=== PATIENT | male | born 1955 | race Caucasian/White ===

== ENCOUNTER 2022-01-24 02:32 | Inpatient (IN) | payer MEDICARE ==
--- NOTE | 2022-01-24 03:43 | XR ---
EXAMINATION TYPE: XR chest 2V DATE OF EXAM: 01/24/2022 COMPARISON: NONE HISTORY: Short of breath TECHNIQUE: 2 views FINDINGS: There is patchy infiltrate in both lungs with some coalescent density right midlung field t hat measures 6 cm. There are no hilar masses. Heart size is normal. No heart failure seen. No definit e pleural effusion. There is 1 cm calcified granuloma right lower lobe. IMPRESSION: Bilateral patchy pulmonary infiltrates. No heart failure.
[2022-01-24 03:47] LABS: Basophils % (A) 0 %; Eosinophils # (A) 0.1 k/uL (0-0.7); Eosinophils % (A) 1 %; HCT 42.4 % (39.0-53.0); Lymphocytes # (A) 1.1 k/uL (1.0-4.8); Lymphocytes % (A) 10 %; MCH 30.7 pg (25.0-35.0); MCHC 33.1 g/dL (31.0-37.0); MCV 92.6 fL (80.0-100.0); Mean Platelet Volume 7.4; Monocytes # (A) 0.7 k/uL (0-1.0); Monocytes % (A) 6 %; Neutrophils % (A) 82 %; Platelet Count 233 k/uL (150-450); RBC 4.57 m/uL (4.30-5.90); RDW 13.7 % (11.5-15.5)
[2022-01-24 04:00] LABS: INR 0.9 (<1.2); Partial Thromboplastin Time 22.5 sec (22.0-30.0); Prothrombin Time 10.3 sec (9.0-12.0)
[2022-01-24 04:01] LABS: ALT 66 U/L (4-49); AST 73 U/L (17-59); African American GFR (CKD) >90 (>60 ml/min/1.73 sqM); Albumin 3.6 g/dL (3.5-5.0); Alkaline Phosphatase 81 U/L (38-126); Anion Gap 9 mmol/L; Blood Urea Nitrogen 16 mg/dL (9-20); Calcium 8.8 mg/dL (8.4-10.2); Carbon Dioxide 22 mmol/L (22-30); Chloride 108 mmol/L (98-107); Glucose 194 mg/dL (74-99); Non-African American GFR(CKD) >90 (>60 ml/min/1.73 sqM); Potassium 3.6 mmol/L (3.5-5.1); Sodium 139 mmol/L (137-145); Total Bilirubin 0.6 mg/dL (0.2-1.3); Total Protein 6.6 g/dL (6.3-8.2)
--- NOTE | 2022-01-24 05:52 | CT ---
EXAMINATION TYPE: CT angio chest DATE OF EXAM: 01/24/2022 COMPARISON: None HISTORY: elevated d-dimer CT DLP: 584.6 mGycm Automated exposure control for dose reduction was used. CONTRAST: Performed with IV Contrast, patient injected with 70 mL of Isovue 370. Images obtained from the thoracic inlet to the diaphragm with IV contrast. There are 3-D post process ed images. There are some enlarged paratracheal and anterior mediastinal lymph nodes that measure up to 2.5 cm. There is a stellate mass at the lateral aspect of the right pulmonary hilum measuring 5 cm in diamete r. There are enlarged bilateral bronchial lymph nodes up to 2 cm. Heart size is normal. There is no pericardial effusion. There is normal contrast opacification of the pulmonary arteries. There are no filling defects. There is 1 cm calcified granuloma in the right middle lobe. There are scattered bilateral noncalcified pul monary nodules in the lower lung nowak that measure up to 1 cm. There is small right pleural effusio n. There are calcified granulomata in the spleen. The thoracic spine is intact. There is no compression fracture. Sternum is intact. IMPRESSION: Large stellate mass in the right upper lobe at the right pulmonary hilum consistent with primary pily gnancy. Extensive mediastinal and bronchial adenopathy. Multiple scattered low lobe pulmonary nodules could relate to metastatic disease. No evidence of pulmonary embolism.
[2022-01-24] MEDS ORDERED: NITROGLYCERIN SL TABS 0.4 MG TAB SUBLINGUAL PRN (07:48)
[2022-01-24] MEDS ORDERED: HEPARIN SODIUM,PORCINE/PF 5,000 UNIT/0.5 ML SYRINGE SQ SCH (08:00)
--- NOTE | 2022-01-24 09:24 | ED ---
SOB HPI - General Chief Complaint: Shortness of Breath Stated Complaint: LUTHER Time Seen by Provider: 01/24/22 02:51 Source: patient, EMS Mode of arrival: EMS - History of Present Illness Initial Comments: This patient is 66-year-old man who presents to be evaluated for shortness of breath that is gotten worse over the course of tonight. He noticed that proximally 2-3 hours ago. He states that he was trying to rest at the time. He did not have any associated fever or chills. No cough. No chest pain or diaphoresis. MD Complaint: shortness of breath Onset/Timin -: hour(s) Severity scale (1-10): 0 Consistency: constant Improves With: nothing Worsens With: nothing Associated Symptoms: denies other symptoms Treatments Prior to Arrival: none - Related Data Home Medications Medication Instructions Recorded Confirmed ALPRAZolam [Xanax] 0.25 mg PO DAILY PRN 01/24/22 01/24/22 Atorvastatin [Lipitor] 10 mg PO DAILY 01/24/22 01/24/22 Carvedilol [Coreg] 12.5 mg PO BID 01/24/22 01/24/22 Clopidogrel [Plavix] 75 mg PO DAILY 01/24/22 01/24/22 Losartan/Hydrochlorothiazide 1 tab PO DAILY 01/24/22 01/24/22 [Losartan-Hctz 100-25 mg Tab] Multivitamins, Thera [Multivitamin 1 tab PO DAILY 01/24/22 01/24/22 (formulary)] Niacin 500 mg PO DAILY 01/24/22 01/24/22 Venlafaxine HCl ER [Effexor Xr] 37.5 mg PO DAILY 01/24/22 01/24/22 amLODIPine [Norvasc] 10 mg PO HS 01/24/22 01/24/22 metFORMIN HCL [Glucophage] 1,000 mg PO BID 01/24/22 01/24/22 Allergies Allergy/AdvReac Type Severity Reaction Status Date / Time No Known Allergies Allergy Verified 01/24/22 08:15 Review of Systems ROS Statement: Those systems with pertinent positive or pertinent negative responses have been documented in the HPI. ROS Other: All systems not noted in ROS Statement are negative. Constitutional: Denies: fever, chills Respiratory: Reports: dyspnea. Denies: cough, wheezes, hemoptysis Cardiovascular: Denies: chest pain, palpitations, orthopnea, edema, syncope Gastrointestinal: Denies: abdominal pain, vomiting, diarrhea Genitourinary: Denies: dysuria, hematuria Musculoskeletal: Denies: back pain Skin: Denies: rash Neurological: Denies: headache, weakness Past Medical History Past Medical History: Coronary Artery Disease (CAD), CVA/TIA, Diabetes Mellitus, Hyperlipidemia, Hypertension, Myocardial Infarction (MT) Additional Past Medical History / Comment(s): "irregular heartbeat", hernia History of Any Multi-Drug Resistant Organisms: None Reported Past Surgical History: Appendectomy, Cholecystectomy, Heart Catheterization With Stent Past Psychological History: No Psychological Hx Reported Smoking Status: Current every day smoker Past Alcohol Use History: None Reported Past Drug Use History: None Reported General Exam General appearance: alert, in no apparent distress Head exam: Present: atraumatic, normocephalic Eye exam: Present: normal appearance. Absent: scleral icterus, conjunctival injection Neck exam: Present: normal inspection Respiratory exam: Present: wheezes (There is a trace wheeze bilaterally). Absent: respiratory distress, rales, rhonchi, stridor Cardiovascular Exam: Present: regular rate, normal rhythm, normal heart sounds. Absent: systolic murmur, diastolic murmur, rubs, gallop GI/Abdominal exam: Present: soft. Absent: distended, tenderness, guarding, rebound, rigid, mass Extremities exam: Present: normal inspection, normal capillary refill. Absent: pedal edema, calf tenderness Back exam: Present: normal inspection. Absent: CVA tenderness (R), CVA tenderness (L) Neurological exam: Present: alert Skin exam: Present: warm, dry, intact, normal color. Absent: rash Course Vital Signs 01/24/22 01/24/22 01/24/22 02:35 02:57 04:42 Temperature 98.1 F Pulse Rate 87 74 Respiratory 16 24 16 Rate Blood Pressure 127/78 O2 Sat by Pulse 95 98 Oximetry 01/24/22 01/24/22 06:42 09:09 Temperature Pulse Rate 74 70 Respiratory 22 18 Rate Blood Pressure 156/83 155/92 O2 Sat by Pulse 98 96 Oximetry Medical Decision Making - Lab Data Result diagrams: 01/24/22 03:32 01/24/22 03:32 Lab Results 01/24/22 01/24/22 01/24/22 Range/Units 03:32 03:32 03:32 WBC 11.0 H (3.8-10.6) k/uL RBC 4.57 (4.30-5.90) m/uL Hgb 14.0 (13.0-17.5) gm/dL Hct 42.4 (39.0-53.0) % MCV 92.6 (80.0-100.0) fL MCH 30.7 (25.0-35.0) pg MCHC 33.1 (31.0-37.0) g/dL RDW 13.7 (11.5-15.5) % Plt Count 233 (150-450) k/uL MPV 7.4 Neutrophils % 82 % Lymphocytes % 10 % Monocytes % 6 % Eosinophils % 1 % Basophils % 0 % Neutrophils # 9.0 H (1.3-7.7) k/uL Lymphocytes # 1.1 (1.0-4.8) k/uL Monocytes # 0.7 (0-1.0) k/uL Eosinophils # 0.1 (0-0.7) k/uL Basophils # 0.0 (0-0.2) k/uL PT 10.3 (9.0-12.0) sec INR 0.9 (<1.2) APTT 22.5 (22.0-30.0) sec D-Dimer 1.29 H (<0.60) mg/L FEU Sodium 139 (137-145) mmol/L Potassium 3.6 (3.5-5.1) mmol/L Chloride 108 H (98-107) mmol/L Carbon Dioxide 22 (22-30) mmol/L Anion Gap 9 mmol/L BUN 16 (9-20) mg/dL Creatinine 0.76 (0.66-1.25) mg/dL Est GFR (CKD-EPI)AfAm >90 (>60 ml/min/1.73 sqM) Est GFR (CKD-EPI)NonAf >90 (>60 ml/min/1.73 sqM) Glucose 194 H (74-99) mg/dL Plasma Lactic Acid Chen[place] (0.7-2.0) mmol/L Calcium 8.8 (8.4-10.2) mg/dL Total Bilirubin 0.6 (0.2-1.3) mg/dL AST 73 H (17-59) U/L ALT 66 H (4-49) U/L Alkaline Phosphatase 81 (38-126) U/L Troponin I (0.000-0.034) ng/mL NT-Pro-B Natriuret Pep pg/mL Total Protein 6.6 (6.3-8.2) g/dL Albumin 3.6 (3.5-5.0) g/dL Coronavirus (PCR) (Not Detectd) 01/24/22 01/24/22 01/24/22 Range/Units 03:32 03:32 03:32 WBC (3.8-10.6) k/uL RBC (4.30-5.90) m/uL Hgb (13.0-17.5) gm/dL Hct (39.0-53.0) % MCV (80.0-100.0) fL MCH (25.0-35.0) pg MCHC (31.0-37.0) g/dL RDW (11.5-15.5) % Plt Count (150-450) k/uL MPV Neutrophils % % Lymphocytes % % Monocytes % % Eosinophils % % Basophils % % Neutrophils # (1.3-7.7) k/uL Lymphocytes # (1.0-4.8) k/uL Monocytes # (0-1.0) k/uL Eosinophils # (0-0.7) k/uL Basophils # (0-0.2) k/uL PT (9.0-12.0) sec INR (<1.2) APTT (22.0-30.0) sec D-Dimer (<0.60) mg/L FEU Sodium (137-145) mmol/L Potassium (3.5-5.1) mmol/L Chloride (98-107) mmol/L Carbon Dioxide (22-30) mmol/L Anion Gap mmol/L BUN (9-20) mg/dL Creatinine (0.66-1.25) mg/dL Est GFR (CKD-EPI)AfAm (>60 ml/min/1.73 sqM) Est GFR (CKD-EPI)NonAf (>60 ml/min/1.73 sqM) Glucose (74-99) mg/dL Plasma Lactic Acid Chen[place] 1.8 (0.7-2.0) mmol/L Calcium (8.4-10.2) mg/dL Total Bilirubin (0.2-1.3) mg/dL AST (17-59) U/L ALT (4-49) U/L Alkaline Phosphatase (38-126) U/L Troponin I 0.057 H* (0.000-0.034) ng/mL NT-Pro-B Natriuret Pep 1590 pg/mL Total Protein (6.3-8.2) g/dL Albumin (3.5-5.0) g/dL Coronavirus (PCR) (Not Detectd) 01/24/22 Range/Units 03:34 WBC (3.8-10.6) k/uL RBC (4.30-5.90) m/uL Hgb (13.0-17.5) gm/dL Hct (39.0-53.0) % MCV (80.0-100.0) fL MCH (25.0-35.0) pg MCHC (31.0-37.0) g/dL RDW (11.5-15.5) % Plt Count (150-450) k/uL MPV Neutrophils % % Lymphocytes % % Monocytes % % Eosinophils % % Basophils % % Neutrophils # (1.3-7.7) k/uL Lymphocytes # (1.0-4.8) k/uL Monocytes # (0-1.0) k/uL Eosinophils # (0-0.7) k/uL Basophils # (0-0.2) k/uL PT (9.0-12.0) sec INR (<1.2) APTT (22.0-30.0) sec D-Dimer (<0.60) mg/L FEU Sodium (137-145) mmol/L Potassium (3.5-5.1) mmol/L Chloride (98-107) mmol/L Carbon Dioxide (22-30) mmol/L Anion Gap mmol/L BUN (9-20) mg/dL Creatinine (0.66-1.25) mg/dL Est GFR (CKD-EPI)AfAm (>60 ml/min/1.73 sqM) Est GFR (CKD-EPI)NonAf (>60 ml/min/1.73 sqM) Glucose (74-99) mg/dL Plasma Lactic Acid Chen[place] (0.7-2.0) mmol/L Calcium (8.4-10.2) mg/dL Total Bilirubin (0.2-1.3) mg/dL AST (17-59) U/L ALT (4-49) U/L Alkaline Phosphatase (38-126) U/L Troponin I (0.000-0.034) ng/mL NT-Pro-B Natriuret Pep pg/mL Total Protein (6.3-8.2) g/dL Albumin (3.5-5.0) g/dL Coronavirus (PCR) Not Detected (Not Detectd) - EKG Data EKG shows normal: sinus rhythm (With premature supraventricular complex), axis (Normal), intervals (Normal) Rate: normal (Rate 85 bpm) Interpretation: other (Possible old inferior infarct.) Disposition Clinical Impression: Pulmonary mass, Elevated troponin I level Disposition: ADMITTED IP TO THIS HOSP Condition: Fair Is patient prescribed a controlled substance at d/c from ED?: No Referrals: Nonstaff,Physician [Primary Care Provider] - 1-2 days
[2022-01-24] MEDS ORDERED: ALPRAZolam 0.25 MG TAB PO PRN (12:13)
[2022-01-24] MEDS ORDERED: IPRATROPIUM-ALBUTEROL 3 ML NEB INHALATION PRN (12:18)
--- NOTE | 2022-01-24 12:19 | P.CNPUL ---
History of Present Illness Consult date: 01/24/22 Requesting physician: Neil Huitron Reason for consult: dyspnea Chief complaint: Shortness of breath, lung mass History of present illness: 66-year-old white male patient, who is a current smoker, with history of diabetes mellitus type II, hypertension, hyperlipidemia, coronary artery disease, previous history of myocardial infarction, coronary artery disease with previous stenting who presented to the emergency department on 01/24/2022 with complaints of shortness of breath that became progressively worse overnight. Patient reports no fever or chills, no cough, no chest pain, no diaphoresis. EKG in the ED revealed sinus rhythm with frequent PVCs, and evidence of inferior myocardial infarction of undetermined age. Chest x-ray showed bilateral patchy pulmonary infiltrates and pulmonary right midlung field lung mass, that measured 6 cm. Heart size was normal, no heart failure was seen, no definite pleural effusion. White blood cell count was 11, hemoglobin was 14, d-dimer was 1.29, sodium is 139, potassium 3.6, chloride is 108, CO2 is 22, BUN 16 creatinine 0.76, troponin was 0.057, proBNP was 1590. AST was elevated at 73, and ALT was 66, alk phos was normal at 81. COVID-19 PCR was negative. CTA chest was completed in view of elevated d-dimer showing large stellate mass in the right upper lobe at the right pulmonary hilum consistent with primary malignancy, extensive mediastinal and bronchial adenopathy, multiple scattered lower lobe pulmonary nodules that could relate to metastatic disease, no evidence of pulmonary embolism. Patient states he is a current smoker, smokes 2 packs a day for many years. Denied having any recent chest x-rays in the last couple of years. No family history of lung cancer, no weight loss. Patient had a mild troponin elevation, but no complaints of chest pain. He was started on heparin infusion, we'll consult cardiology for cardiac workup. He had previous history of coronary artery stenting at the [facility] in [place]. Review of Systems All systems: negative Constitutional: Denies chills, Denies fever Eyes: denies blurred vision, denies pain Ears, nose, mouth and throat: Denies headache, Denies sore throat Cardiovascular: Denies chest pain, Denies shortness of breath Respiratory: Reports dyspnea, Denies cough Gastrointestinal: Denies abdominal pain, Denies diarrhea, Denies nausea, Denies vomiting Musculoskeletal: Denies myalgias Integumentary: Denies pruritus, Denies rash Neurological: Denies numbness, Denies weakness Psychiatric: Denies anxiety, Denies depression Endocrine: Denies fatigue, Denies weight change Past Medical History Past Medical History: Coronary Artery Disease (CAD), CVA/TIA, Diabetes Mellitus, Hyperlipidemia, Hypertension, Myocardial Infarction (HI) Additional Past Medical History / Comment(s): "irregular heartbeat", hernia History of Any Multi-Drug Resistant Organisms: None Reported Past Surgical History: Appendectomy, Cholecystectomy, Heart Catheterization With Stent Past Psychological History: No Psychological Hx Reported Smoking Status: Current every day smoker Past Alcohol Use History: None Reported Past Drug Use History: None Reported Medications and Allergies Home Medications Medication Instructions Recorded Confirmed Type ALPRAZolam [Xanax] 0.25 mg PO DAILY PRN 01/24/22 01/24/22 History Atorvastatin [Lipitor] 10 mg PO DAILY 01/24/22 01/24/22 History Carvedilol [Coreg] 12.5 mg PO BID 01/24/22 01/24/22 History Clopidogrel [Plavix] 75 mg PO DAILY 01/24/22 01/24/22 History Losartan/Hydrochlorothiazide 1 tab PO DAILY 01/24/22 01/24/22 History [Losartan-Hctz 100-25 mg Tab] Multivitamins, Thera [Multivitamin 1 tab PO DAILY 01/24/22 01/24/22 History (formulary)] Niacin 500 mg PO DAILY 01/24/22 01/24/22 History Venlafaxine HCl ER [Effexor Xr] 37.5 mg PO DAILY 01/24/22 01/24/22 History amLODIPine [Norvasc] 10 mg PO HS 01/24/22 01/24/22 History metFORMIN HCL [Glucophage] 1,000 mg PO BID 01/24/22 01/24/22 History Allergies Allergy/AdvReac Type Severity Reaction Status Date / Time No Known Allergies Allergy Verified 01/24/22 08:15 Physical Exam Vitals: Vital Signs Temp Pulse Resp BP Pulse Ox 01/24/22 10:19 95 01/24/22 09:09 70 18 155/92 96 01/24/22 06:42 74 22 156/83 98 01/24/22 04:42 74 16 98 01/24/22 02:57 24 01/24/22 02:35 98.1 F 87 16 127/78 95 Intake and Output 01/23/22 01/24/22 01/24/22 22:59 06:59 14:59 Other: Weight 99.79 kg GENERAL EXAM: Alert, very pleasant, 66-year-old white male on room air with a pulse ox of 95-96%, comfortable in no apparent distress. HEAD: Normocephalic/atraumatic. EYES: Normal reaction of pupils, equal size. Conjunctiva pink, sclera white. NOSE: Clear with pink turbinates. THROAT: No erythema or exudates. NECK: No masses, no JVD, no thyroid enlargement, no adenopathy. CHEST: No chest wall deformity. Symmetrical expansion. LUNGS: diminished air entry with no crackles, wheeze, rhonchi or dullness. CVS: Regular rate and rhythm, normal S1 and S2, no gallops, no murmurs, no rubs ABDOMEN: Soft, nontender. No hepatosplenomegaly, normal bowel sounds, no guarding or rigidity. EXTREMITIES: No clubbing, no edema, no cyanosis, 2+ pulses and upper and lower extremities. MUSCULOSKELETAL: Muscle strength and tone normal. SPINE: No scoliosis or deformity SKIN: No rashes CENTRAL NERVOUS SYSTEM: Alert and oriented -3. No focal deficits, tone is normal in all 4 extremities. PSYCHIATRIC: Alert and oriented -3. Appropriate affect. Intact judgment and insight. Results - Laboratory Findings CBC and BMP: 01/24/22 03:32 01/24/22 03:32 PT/INR, D-dimer PT 10.3 sec (9.0-12.0) 01/24/22 03:32 INR 0.9 (<1.2) 01/24/22 03:32 D-Dimer 1.29 mg/L FEU (<0.60) H 01/24/22 03:32 Abnormal lab findings: Abnormal Labs 01/24/22 01/24/22 01/24/22 03:32 03:32 03:32 WBC 11.0 H Neutrophils # 9.0 H D-Dimer 1.29 H Chloride 108 H Glucose 194 H AST 73 H ALT 66 H Troponin I 01/24/22 03:32 WBC Neutrophils # D-Dimer Chloride Glucose AST ALT Troponin I 0.057 H* - Diagnostic Findings Chest x-ray: report reviewed, image reviewed CT scan - chest: report reviewed, image reviewed Additional studies: EKG reviewed Assessment and Plan Plan: Assessment: #1. Newly discovered large right upper lobe mass consistent with primary malignancy with extensive mediastinal and bronchial adenopathy and multiple scattered lower lobe pulmonary nodules highly suspicious for metastatic lung cancer. Patient will need bronchoscopy with biopsies, possible navigational bronchoscopy, EBUS and PET scan, once cleared by cardiology, likely on an outpatient basis #2. Mild troponin elevation, rule out possibility of non-ST elevated myocardial infarction, cardiology consultation is pending #3. Acute shortness of breath #4. Chronic smoker, continues to smoke 2 packs a day on a daily basis #5. Hypertension #6. Hyperlipidemia #7. Diabetes mellitus type 2 #8. Previous history of myocardial infarction #9. Coronary artery disease with previous stenting #10. Previous history of CVA/TIA #11. Suspect underlying COPD, with mild active exacerbation Plan: The findings of the chest x-ray and CT of the chest are highly suspicious for metastatic lung cancer This is a new finding for the patient He will eventually need navigational bronchoscopy, EBUS and PET scan He continues on heparin infusion for elevated troponins He will be evaluated by cardiology Once cardiology cleared the patient, we'll set him up for outpatient workup In the meantime will add IV solumedrol and breathing treatments We'll continue to follow his clinical course I performed a history & physical examination of the patient and discussed their management with my nurse practitioner, Salma Valdez. I reviewed the nurse practitioner's note and agree with the documented findings and plan of care. L haylee sounds are positive for diffuse wheezes throughout the lung nowak. The findings and the impression was discussed with the patient. I attest to the documentation by the nurse practitioner. I have personally seen and examined the patient, performed the documentation and the assessment and plan as written. Number of minutes spent on the visit: [15] Time with Patient: Greater than 30
[2022-01-24] MEDS ORDERED: POTASSIUM CHLORIDE ER 20 MEQ TAB.ER PO STA (12:22)
--- NOTE | 2022-01-24 13:47 | P.CRDCN ---
History of Present Illness Consult date: 01/24/22 History of present illness: HISTORY OF PRESENT ILLNESS: This is a 66-year-old male with a past medical history significant for coronary artery disease with previous stenting, hypertension, hyperlipidemia, diabetes, and nicotine dependence. 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 We have been asked to see the patient in consultation for abnormal troponins. Patient examined at the bedside. Patient presented to the hospital with a chief co mplaint of shortness of breath. The patient denied any chest pain or pressure. The patient underwent CTA revealing right lung mass. Pulmonary was consulted. The patient is a current smoker and smokes 2 PPD. He also reports a history of CAD and states he underwent stenting at [facility] in [place] about 10 years ago. He is unsure of what vessel was stented. * EKG reveals sinus mechanism with no signs of acute ischemia. Q waves inferiorly. * Chest xray bilateral patchy pulmonary infiltrates. No heart failure. * Chest CTA: Large stellate mass in the right upper lobe at the right pulmonary hilum consistent with primary malignancy. Extensive mediastinal and bronchial adenopathy. Multiple scattered low lobe pulmonary nodules could relate to metastatic disease. No evidence of pulmonary embolism * Laboratory data: WBC 11.0. Hemoglobin 14.0. Platelet count 233. D-dimer 1.29. Sodium 139. Potassium 3.6. BUN 16. Creatinine 0.76. Lactic acid 1.8. Troponin 0.057. 0.089. * Current home cardiac medications include amlodipine 10 mg at night, niacin 500 mg daily, losartan/hydrochlorothiazide 100-25mg daily, Plavix 75 mg daily, Coreg 12.5 mg twice a day, Lipitor 10 mg daily REVIEW OF SYSTEMS: At the time of my exam: CONSTITUTIONAL: Denies fever or chills. HEENT: Denies blurred vision, vision changes, or eye pain. Denies hemoptysis CARDIOVASCULAR: Denies chest pain. Denies orthopnea. Denies PND. Denies palpitations RESPIRATORY: + shortness of breath. GASTROINTESTINAL: Denies abdominal pain. Denies nausea or vomiting. HEMATOLOGIC: Denies bleeding disorders. GENITOURINARY: Denies any blood in urine. SKIN: Denies pruitis. Denies rash. PHYSICAL EXAM: VITAL SIGNS: Reviewed. GENERAL: Well-developed in no acute distress. HEENT: Head is normocephalic. Pupils are equal, round. Sclerae anicteric. Mucous membranes of the mouth are moist. Neck supple. No JVD or thyromegaly LUNGS: Respirations even and unlabored. Lungs diminished HEART: Regular rate and rhythm. S1 and S2 heard. ABDOMEN: Soft. Nondistended. Nontender. EXTREMITIES: Normal range of motion. No clubbing or cyanosis. Peripheral pulses intact. No lower extremity edema NEUROLOGIC: Awake and alert. Oriented x 3. ASSESSMENT: Shortness of breath Right lung mass, suspected metastatic cancer Coronary artery disease with previous stenting, exact details unknown Abnormal troponins, not suggestive of ACS, may be secondary to hypoxia Hypertension Hyperlipidemia Diabetes History of TIA Abnormal LFTs PLAN: Obtain 2D echo to assess cardiac structure and function Resume home cardiac medications Pulmonary consulted Hold Plavix pending pulmonary consult Decrease aspirin to 81mg daily Further recommendations pending patient course Nurse practitioner note has been reviewed by physician. Signing provider agrees with the documented findings, assessment, and plan of care. Past Medical History Past Medical History: Coronary Artery Disease (CAD), CVA/TIA, Diabetes Mellitus, Hyperlipidemia, Hypertension, Myocardial Infarction (HI) Additional Past Medical History / Comment(s): "irregular heartbeat", hernia, stroke at 47 years old Last Myocardial Infarction Date:: 2011 History of Any Multi-Drug Resistant Organisms: None Reported Past Surgical History: Appendectomy, Cholecystectomy, Heart Catheterization With Stent Past Anesthesia/Blood Transfusion Reactions: Motion Sickness Date of Last Stent Placement:: 2011 Past Psychological History: No Psychological Hx Reported Smoking Status: Current every day smoker Past Alcohol Use History: None Reported Past Drug Use History: None Reported - Past Family History Father Additional Family Medical History / Comment(s): at 75 years old from Melanoma with mets to brain. Mother Additional Family Medical History / Comment(s): CA in lymph nodes- at age 75. Medications and Allergies Home Medications Medication Instructions Recorded Confirmed Type ALPRAZolam [Xanax] 0.25 mg PO DAILY PRN 01/24/22 01/24/22 History Atorvastatin [Lipitor] 10 mg PO DAILY 01/24/22 01/24/22 History Carvedilol [Coreg] 12.5 mg PO BID 01/24/22 01/24/22 History Clopidogrel [Plavix] 75 mg PO DAILY 01/24/22 01/24/22 History Losartan/Hydrochlorothiazide 1 tab PO DAILY 01/24/22 01/24/22 History [Losartan-Hctz 100-25 mg Tab] Multivitamins, Thera [Multivitamin 1 tab PO DAILY 01/24/22 01/24/22 History (formulary)] Niacin 500 mg PO DAILY 01/24/22 01/24/22 History Venlafaxine HCl ER [Effexor Xr] 37.5 mg PO DAILY 01/24/22 01/24/22 History amLODIPine [Norvasc] 10 mg PO HS 01/24/22 01/24/22 History metFORMIN HCL [Glucophage] 1,000 mg PO BID 01/24/22 01/24/22 History Allergies Allergy/AdvReac Type Severity Reaction Status Date / Time No Known Allergies Allergy Verified 01/24/22 08:15 Physical Exam Vitals: Vital Signs Temp Pulse Resp BP Pulse Ox 01/24/22 10:19 95 01/24/22 09:09 70 18 155/92 96 01/24/22 06:42 74 22 156/83 98 01/24/22 04:42 74 16 98 01/24/22 02:57 24 01/24/22 02:35 98.1 F 87 16 127/78 95 Intake and Output 01/23/22 01/24/22 01/24/22 22:59 06:59 14:59 Other: Weight 99.79 kg 99.79 kg Results 01/24/22 03:32 01/24/22 03:32 Cardiac Enzymes 01/24/22 01/24/22 01/24/22 Range/Units 03:32 03:32 09:55 AST 73 H (17-59) U/L Troponin I 0.057 H* 0.089 H* (0.000-0.034) ng/mL Coagulation 01/24/22 Range/Units 03:32 PT 10.3 (9.0-12.0) sec APTT 22.5 (22.0-30.0) sec CBC 01/24/22 Range/Units 03:32 WBC 11.0 H (3.8-10.6) k/uL RBC 4.57 (4.30-5.90) m/uL Hgb 14.0 (13.0-17.5) gm/dL Hct 42.4 (39.0-53.0) % Plt Count 233 (150-450) k/uL Comprehensive Metabolic Panel 01/24/22 Range/Units 03:32 Sodium 139 (137-145) mmol/L Potassium 3.6 (3.5-5.1) mmol/L Chloride 108 H (98-107) mmol/L Carbon Dioxide 22 (22-30) mmol/L BUN 16 (9-20) mg/dL Creatinine 0.76 (0.66-1.25) mg/dL Glucose 194 H (74-99) mg/dL Calcium 8.8 (8.4-10.2) mg/dL AST 73 H (17-59) U/L ALT 66 H (4-49) U/L Alkaline Phosphatase 81 (38-126) U/L Total Protein 6.6 (6.3-8.2) g/dL Albumin 3.6 (3.5-5.0) g/dL Current Medications Generic Name Dose Route Start Last Admin Trade Name Freq PRN Reason Stop Dose Admin Albuterol/Ipratropium 3 ml 01/24/22 16:00 Ipratropium-Albuterol 3 Ml Neb INHALATION RT-QID SAMREEN Albuterol/Ipratropium 3 ml 01/24/22 12:18 Ipratropium-Albuterol 3 Ml Neb INHALATION RT-TID PRN Shortness Of Breath Or Wheezing Alprazolam 0.25 mg 01/24/22 12:13 Alprazolam 0.25 Mg Tab PO DAILY PRN Anxiety Amlodipine Besylate 10 mg 01/24/22 21:00 Amlodipine 10 Mg Tab PO HS [facility] Aspirin 325 mg 01/25/22 09:00 Aspirin 325 Mg Tab PO DAILY [facility] Atorvastatin Calcium 10 mg 01/25/22 09:00 Atorvastatin 10 Mg Tab PO DAILY [facility] Budesonide 1 mg 01/24/22 20:00 Budesonide 1 Mg/2 Ml Nebu INHALATION RT-BID [facility] Carvedilol 12.5 mg 01/24/22 12:30 Carvedilol 12.5 Mg Tab PO BID-W/MEALS [facility] Formoterol Fumarate 20 mcg 01/24/22 20:00 Formoterol Fumarate 20 Mcg/2 Ml Nebu INHALATION RT-BID [facility] HCTZ/Losartan Potassium 2 each 01/25/22 09:00 Losartan-Hctz 50-12.5 Mg 1 Each Tab PO DAILY [facility] Heparin Sodium (Porcine) 5,000 unit 01/24/22 08:00 01/24/22 11:07 Heparin Sodium,Porcine/Pf 5,000 Unit/0.5 Ml Syringe SQ Not Given Q8HR [facility] Methylprednisolone Sodium Succinate 40 mg 01/24/22 16:00 Methylprednisolone Sod Succi 40 Mg/Ml 1 Ml Vial IV Q8HR [facility] Niacin 500 mg 01/25/22 09:00 Niacin Tr 500 Mg Caplet PO DAILY [facility] Nitroglycerin 0.4 mg 01/24/22 07:48 Nitroglycerin Sl Tabs 0.4 Mg Tab SUBLINGUAL Q5M PRN Chest Pain Venlafaxine HCl 37.5 mg 01/25/22 09:00 Venlafaxine Hcl Er 37.5 Mg Cap PO DAILY [facility] Intake and Output 01/23/22 01/24/22 01/24/22 22:59 06:59 14:59 Other: Weight 99.79 kg 99.79 kg Patient Weight 01/25/22 06:59 Weight 99.79 kg 01/24/22 03:32 01/24/22 03:32
[2022-01-24] MEDS: carvediloL 12.5 MG TAB PO SCH ×2 (14:25→21:28)
--- NOTE | 2022-01-24 14:32 | P.HPIM ---
History of Present Illness Patient is a 66-year-old male known history of smoking continues to smoke came in with the complaints of shortness of breath which has progressively gotten worse. Patient had a chest x-ray showed bilateral patchy infiltrates and a possible mass. Patient also has elevated d-dimer because of which patient had a CT angios the chest which showed large stellate mass in the right upper lobe and right pulmonary hilum consistent with primary pulmonary malignancy along with the extensive mediastinal bronchial adenopathy, without any pulmonary embolism. Patient is negative for COVID-19. Patient has mildly elevated liver enzymes. Patient also has mildly elevated troponin because of his cardiology was consulted EKG showed some PVCs without any acute ST-T wave changes REVIEW OF SYSTEMS: CONSTITUTIONAL: No fever, no malaise, no fatigue. HEENT: No recent visual problems or hearing problems. Denied any sore throat. CARDIOVASCULAR: No chest pain, orthopnea, PND, no palpitations, no syncope. PULMONARY: no hemoptysis. GASTROINTESTINAL: No diarrhea, no nausea, no vomiting, no abdominal pain. NEUROLOGICAL: No headaches, no weakness, no numbness. HEMATOLOGICAL: Denies any bleeding or petechiae. GENITOURINARY: Denies any burning micturition, frequency, or urgency. MUSCULOSKELETAL/RHEUMATOLOGICAL: Denies any joint pain, swelling, or any muscle pain. ENDOCRINE: Denies any polyuria or polydipsia. The rest of the 14-point review of systems is negative. PHYSICAL EXAMINATION: GENERAL: The patient is alert and oriented x3, not in any acute distress. Well developed, well nourished. HEENT: Pupils are round and equally reacting to light. EOMI. No scleral icterus. No conjunctival pallor. Normocephalic, atraumatic. No pharyngeal erythema. No thyromegaly. CARDIOVASCULAR: S1 and S2 present. No murmurs, rubs, or gallops. PULMONARY: Chest is clear to auscultation, no wheezing or crackles. ABDOMEN: Soft, nontender, nondistended, normoactive bowel sounds. No palpable organomegaly. MUSCULOSKELETAL: No joint swelling or deformity. EXTREMITIES: No cyanosis, clubbing, or pedal edema. NEUROLOGICAL: Gross neurological examination did not reveal any focal deficits. SKIN: No rashes. Assessment and plan -Right upper lobe mass consistent with primary pulmonary malignancy patient probably will undergo bronchoscopy once cleared by cardiology. -Mildly elevated troponins. Probably secondary to hypoxemia, cardiology evaluated the patient. -Coronary artery disease with previous stenting in the past -hypertension -Hyperlipidemia -Type DM2 COPD with mild acute excerbation DVT prophylaxis: Lovenox Past Medical History Past Medical History: Coronary Artery Disease (CAD), CVA/TIA, Diabetes Mellitus, Hyperlipidemia, Hypertension, Myocardial Infarction (PR) Additional Past Medical History / Comment(s): "irregular heartbeat", hernia, stroke at 47 years old Last Myocardial Infarction Date:: 2011 History of Any Multi-Drug Resistant Organisms: None Reported Past Surgical History: Appendectomy, Cholecystectomy, Heart Catheterization With Stent Past Anesthesia/Blood Transfusion Reactions: Motion Sickness Date of Last Stent Placement:: 2011 Past Psychological History: No Psychological Hx Reported Smoking Status: Current every day smoker Past Alcohol Use History: None Reported Past Drug Use History: None Reported - Past Family History Father Additional Family Medical History / Comment(s): at 75 years old from Melanoma with mets to brain. Mother Additional Family Medical History / Comment(s): CA in lymph nodes- at age 75. Medications and Allergies Home Medications Medication Instructions Recorded Confirmed Type ALPRAZolam [Xanax] 0.25 mg PO DAILY PRN 01/24/22 01/24/22 History Atorvastatin [Lipitor] 10 mg PO DAILY 01/24/22 01/24/22 History Carvedilol [Coreg] 12.5 mg PO BID 01/24/22 01/24/22 History Clopidogrel [Plavix] 75 mg PO DAILY 01/24/22 01/24/22 History Losartan/Hydrochlorothiazide 1 tab PO DAILY 01/24/22 01/24/22 History [Losartan-Hctz 100-25 mg Tab] Multivitamins, Thera [Multivitamin 1 tab PO DAILY 01/24/22 01/24/22 History (formulary)] Niacin 500 mg PO DAILY 01/24/22 01/24/22 History Venlafaxine HCl ER [Effexor Xr] 37.5 mg PO DAILY 01/24/22 01/24/22 History amLODIPine [Norvasc] 10 mg PO HS 01/24/22 01/24/22 History metFORMIN HCL [Glucophage] 1,000 mg PO BID 01/24/22 01/24/22 History Allergies Allergy/AdvReac Type Severity Reaction Status Date / Time No Known Allergies Allergy Verified 01/24/22 08:15 Physical Exam Vitals: Vital Signs Temp Pulse Resp BP Pulse Ox 01/24/22 10:19 95 01/24/22 09:09 70 18 155/92 96 01/24/22 06:42 74 22 156/83 98 01/24/22 04:42 74 16 98 01/24/22 02:57 24 01/24/22 02:35 98.1 F 87 16 127/78 95 Intake and Output 01/23/22 01/24/22 01/24/22 22:59 06:59 14:59 Other: Weight 99.79 kg 99.79 kg Results CBC & Chem 7: 01/24/22 03:32 01/24/22 03:32 Labs: Abnormal Lab Results - Last 24 Hours (Table) 01/24/22 01/24/22 01/24/22 Range/Units 03:32 03:32 03:32 WBC 11.0 H (3.8-10.6) k/uL Neutrophils # 9.0 H (1.3-7.7) k/uL D-Dimer 1.29 H (<0.60) mg/L FEU Chloride 108 H (98-107) mmol/L Glucose 194 H (74-99) mg/dL AST 73 H (17-59) U/L ALT 66 H (4-49) U/L Troponin I (0.000-0.034) ng/mL 01/24/22 01/24/22 01/24/22 Range/Units 03:32 09:55 13:01 WBC (3.8-10.6) k/uL Neutrophils # (1.3-7.7) k/uL D-Dimer (<0.60) mg/L FEU Chloride (98-107) mmol/L Glucose (74-99) mg/dL AST (17-59) U/L ALT (4-49) U/L Troponin I 0.057 H* 0.089 H* 0.071 H* (0.000-0.034) ng/mL Thrombosis Risk Factor Assmnt - Choose All That Apply Any of the Below Risk Factors Present?: No Each Risk Factor Represents 2 Points: Age 61-74 years Other congenital or acquired thrombophilia - If yes, enter type in comment: No Thrombosis Risk Factor Assessment Total Risk Factor Score: 2 Thrombosis Risk Factor Assessment Level: Low Risk
[2022-01-24] MEDS: IPRATROPIUM-ALBUTEROL 3 ML NEB INHALATION SCH ×2 (14:53→20:04)
[2022-01-24] MEDS: BUDESONIDE 1 MG/2 ML NEBU INHALATION SCH (20:04)
[2022-01-24] MEDS: FORMOTEROL FUMARATE 20 MCG/2 ML NEBU INHALATION SCH (20:04)
[2022-01-24 20:54] LABS: Glucose,Whole Blood 167 mg/dL (75-99)
[2022-01-24] MEDS: methylPREDNISolone SOD SUCCI 40 MG/ML 1 ML VIAL IV SCH ×2 (21:28→23:51)
[2022-01-24] MEDS: amLODIPine 10 MG TAB PO SCH (21:29)
[2022-01-25 06:06] LABS: Glucose,Whole Blood 205 mg/dL (75-99)
[2022-01-25] MEDS: INSULIN ASPART (NovoLOG) 100 UNIT/ML VIAL SQ SCH ×2 (06:33→12:25)
[2022-01-25] MEDS: carvediloL 12.5 MG TAB PO SCH (06:33)
--- NOTE | 2022-01-25 07:15 | ECHOF ---
Referral Reason:PE MEASUREMENTS -------- HEIGHT: 175.3 cm WEIGHT: 99.8 kg BP: 155/92 RVIDd: 3.9 cm (< 3.3) IVSd: 1.6 cm (0.6 - 1.1) LVIDd: 5.6 cm (3.9 - 5.3) LVPWd: 1.5 cm (0.6 - 1.1) IVSs: 2.1 cm LVIDs: 4.4 cm LVPWs: 1.9 cm LA Diam: 4.5 cm (2.7 - 3.8) LAESV Index (A-L): 38.56 ml/m Ao Diam: 3.4 cm (2.0 - 3.7) AV Cusp: 1.4 cm (1.5 - 2.6) MV EXCURSION: 15.488 mm (> 18.000) MV EF SLOPE: 82 mm/s (70 - 150) EPSS: 0.7 cm AV maxP.42 mmHg AV meanP.18 mmHg RAP: 5.00 mmHg RVSP: 38.02 mmHg FINDINGS -------- This was a technically adequate study. The left ventricular size is normal. There is moderate concentric left ventricular hypertrophy. O verall left ventricular systolic function is mildly impaired with, an EF between 45 - 50 %. Basal i nferior LV wall motion is hypokinetic. Basal inferoseptal LV wall motion is hypokinetic. Mid in ferior LV wall motion is hypokinetic. The right ventricle is mild to moderately enlarged. LA is moderately dilated 34-39 ml/m2 The right atrium is normal in size. Interatrial and interventricular septum intact. There is mild aortic valve sclerosis. There is mild aortic regurgitation. Peak/mean gradient acro ss the Aortic Valve is 14.42mmHg / 7.18mmHg. The mitral valve is normal. [id number] mitral regurgitation is present. The tricuspid valve appears structurally normal. Mild tricuspid regurgitation present. There is m ild pulmonary hypertension. The right ventricular systolic pressure, as measured by Doppler, is 38. 02mmHg. The pulmonic valve was not well visualized. The aortic root size is normal. Normal inferior vena cava with normal inspiratory collapse consistent with estimated right atrial pre ssure of 5 mmHg. There is no pericardial effusion. CONCLUSIONS -------- 1. There is moderate concentric left ventricular hypertrophy. 2. Overall left ventricular systolic function is mildly impaired with, an EF between 45 - 50 %. 3. Basal inferior LV wall motion is hypokinetic. 4. Basal inferoseptal LV wall motion is hypokinetic. 5. Mid inferior LV wall motion is hypokinetic. 6. The right ventricle is mild to moderately enlarged. 7. LA is moderately dilated 34-39 ml/m2 8. There is mild aortic valve sclerosis. 9. There is mild aortic regurgitation. 10. Peak/mean gradient across the Aortic Valve is 14.42mmHg / 7.18mmHg. 11. Gszk-tj-thrpozhn mitral regurgitation is present. 12. Mild tricuspid regurgitation present. 13. There is mild pulmonary hypertension. 14. There is no pericardial effusion. FUR IRONER: Gifty Cheng RDCS
[2022-01-25 08:28] LABS: HCT 42.4 % (39.0-53.0); MCH 30.4 pg (25.0-35.0); MCHC 32.9 g/dL (31.0-37.0); MCV 92.3 fL (80.0-100.0); Mean Platelet Volume 7.6; Platelet Count 255 k/uL (150-450); RBC 4.59 m/uL (4.30-5.90); RDW 13.9 % (11.5-15.5); WBC 10.2 k/uL (3.8-10.6)
[2022-01-25] MEDS: IPRATROPIUM-ALBUTEROL 3 ML NEB INHALATION SCH ×2 (08:42→12:36)
[2022-01-25] MEDS: FORMOTEROL FUMARATE 20 MCG/2 ML NEBU INHALATION SCH (08:42)
[2022-01-25] MEDS: BUDESONIDE 1 MG/2 ML NEBU INHALATION SCH (08:42)
[2022-01-25 08:46] LABS: African American GFR (CKD) >90 (>60 ml/min/1.73 sqM); Anion Gap 5 mmol/L; Blood Urea Nitrogen 17 mg/dL (9-20); Calcium 9.1 mg/dL (8.4-10.2); Carbon Dioxide 28 mmol/L (22-30); Chloride 105 mmol/L (98-107); Glucose 213 mg/dL (74-99); Non-African American GFR(CKD) >90 (>60 ml/min/1.73 sqM); Potassium 3.9 mmol/L (3.5-5.1); Sodium 138 mmol/L (137-145)
[2022-01-25] MEDS ORDERED: LOSARTAN-HCTZ 50-12.5 MG 1 EACH TAB PO SCH (09:00)
[2022-01-25] MEDS ORDERED: ATORVASTATIN 10 MG TAB PO SCH (09:00)
[2022-01-25] MEDS ORDERED: ASPIRIN 325 MG TAB PO SCH (09:00)
[2022-01-25] MEDS ORDERED: ASPIRIN 81 MG PO SCH (09:00)
[2022-01-25] MEDS ORDERED: NIACIN TR 500 MG CAPLET PO SCH (09:00)
[2022-01-25] MEDS ORDERED: ENOXAPARIN 40 MG/0.4 ML SYRINGE SQ SCH (09:00)
[2022-01-25] MEDS ORDERED: VENLAFAXINE HCL ER 37.5 MG CAP PO SCH (09:00)
[2022-01-25] MEDS: methylPREDNISolone SOD SUCCI 40 MG/ML 1 ML VIAL IV SCH (09:56)
[2022-01-25 10:35] VITALS: RESP 16
[2022-01-25 11:48] LABS: Glucose,Whole Blood 162 mg/dL (75-99)
--- NOTE | 2022-01-25 11:49 | P.PN ---
Subjective Progress Note Date: 01/25/22 66-year-old white male patient, who is a current smoker, with history of diabetes mellitus type II, hypertension, hyperlipidemia, coronary artery disease, previous history of myocardial infarction, coronary artery disease with previous stenting who presented to the emergency department on 01/24/2022 with c omplaints of shortness of breath that became progressively worse overnight. Patient reports no fever or chills, no cough, no chest pain, no diaphoresis. EKG in the ED revealed sinus rhythm with frequent PVCs, and evidence of inferior myocardial infarction of undetermined age. Chest x-ray showed bilateral patchy pulmonary infiltrates and pulmonary right midlung field lung mass, that measured 6 cm. Heart size was normal, no heart failure was seen, no definite pleural effusion. White blood cell count was 11, hemoglobin was 14, d-dimer was 1.29, sodium is 139, potassium 3.6, chloride is 108, CO2 is 22, BUN 16 creatinine 0.76, troponin was 0.057, proBNP was 1590. AST was elevated at 73, and ALT was 66, alk phos was normal at 81. COVID-19 PCR was negative. CTA chest was completed in view of elevated d-dimer showing large stellate mass in the right upper lobe at the right pulmonary hilum consistent with primary malignancy, extensive mediastinal and bronchial adenopathy, multiple scattered lower lobe pulmonary nodules that could relate to metastatic disease, no evidence of pulmonary embolism. Patient states he is a current smoker, smokes 2 packs a day for many years. Denied having any recent chest x-rays in the last couple of years. No family history of lung cancer, no weight loss. Patient had a mild troponin elevation, but no complaints of chest pain. He was started on heparin infusion, we'll consult cardiology for cardiac workup. He had previous history of coronary artery stenting at the [facility] in [place]. On 01/25/2022 patient seen in follow-up on selective care unit, he is awake and alert, in no acute distress, denies any chest pain and he states his shortness of breath has improved, he is currently on room air, pulse ox of 93%, no fever or chills, stable vital overnight, heparin drip has been discontinued, echocardiogram has been completed showing mildly impaired left ventricular systolic function with an EF of 45-50%, mild aortic valve regurgitation, [id number] mitral valve regurgitation, mild pulmonary hypertension with the right-sided pressure of 38 mmHg. His troponins were 0.057, 0.089, and 0.071. Cardiology has cleared the patient for possible bronchoscopy with biopsies, and placed Plavix on hold. Today patient is awake and alert, denies any distress,tolerating ambulation in the room Objective - Vital Signs Vital signs: Vital Signs Temp 98.0 F 01/25/22 04:00 Pulse 68 01/25/22 09:02 Resp 18 01/25/22 04:00 BP 144/69 01/25/22 04:00 Pulse Ox 94 L 01/25/22 04:31 Intake & Output 01/24/22 01/25/22 01/25/22 18:59 06:59 18:59 Intake Total 120 Balance 120 Weight 99.79 kg Intake: Oral 120 Other: # Voids 1 - Exam GENERAL EXAM: Alert, very pleasant, 66-year-old white male on room air with a pulse ox of 95-96%, comfortable in no apparent distress. HEAD: Normocephalic/atraumatic. EYES: Normal reaction of pupils, equal size. Conjunctiva pink, sclera white. NOSE: Clear with pink turbinates. THROAT: No erythema or exudates. NECK: No masses, no JVD, no thyroid enlargement, no adenopathy. CHEST: No chest wall deformity. Symmetrical expansion. LUNGS: diminished air entry with no crackles, wheeze, rhonchi or dullness. CVS: Regular rate and rhythm, normal S1 and S2, no gallops, no murmurs, no rubs ABDOMEN: Soft, nontender. No hepatosplenomegaly, normal bowel sounds, no guarding or rigidity. EXTREMITIES: No clubbing, no edema, no cyanosis, 2+ pulses and upper and lower extremities. MUSCULOSKELETAL: Muscle strength and tone normal. SPINE: No scoliosis or deformity SKIN: No rashes CENTRAL NERVOUS SYSTEM: Alert and oriented -3. No focal deficits, tone is normal in all 4 extremities. PSYCHIATRIC: Alert and oriented -3. Appropriate affect. Intact judgment and insight. - Labs CBC & Chem 7: 01/25/22 08:13 01/25/22 08:12 Labs: Abnormal Lab Results - Last 24 Hours (Table) 01/24/22 01/24/22 01/24/22 Range/Units 09:55 13:01 20:52 Glucose (74-99) mg/dL POC Glucose (mg/dL) 167 H (75-99) mg/dL Troponin I 0.089 H* 0.071 H* (0.000-0.034) ng/mL 01/25/22 01/25/22 Range/Units 06:05 08:12 Glucose 213 H (74-99) mg/dL POC Glucose (mg/dL) 205 H (75-99) mg/dL Troponin I (0.000-0.034) ng/mL Assessment and Plan Plan: Assessment: #1. Newly discovered large right upper lobe mass consistent with primary malignancy with extensive mediastinal and bronchial adenopathy and multiple scattered lower lobe pulmonary nodules highly suspicious for metastatic lung cancer. Patient will need bronchoscopy with biopsies, possible navigational bronchoscopy, EBUS and PET scan, once cleared by cardiology, likely on an outpatient basis #2. Mild troponin elevation, not thought to be related to ACS, please refer to the cardiology consultation #3. Acute shortness of breath, improved #4. Chronic smoker, continues to smoke 2 packs a day on a daily basis #5. Hypertension #6. Hyperlipidemia #7. Diabetes mellitus type 2 #8. Previous history of myocardial infarction #9. Coronary artery disease with previous stenting #10. Previous history of CVA/TIA #11. Suspect underlying COPD, with mild active exacerbation Plan: Patient has had no acute events overnight, no worsening shortness of breath or chest pain Cardiology consultation has been noted Echocardiogram has been noted Cardiology has cleared the patient for possible bronchoscopy with biopsies and Plavix has been placed on hold From pulmonary perspective patient is clear for discharge home today He will see Dr. Kilgore in the office early next week and will be scheduled for navigational bronchoscopy, EBUS and PET scan Continue holding Plavix for upcoming biopsy if OK with Cardiology I performed a history & physical examination of the patient and discussed their management with my nurse practitioner, Salma Valdez. I reviewed the nurse practitioner's note and agree with the documented findings and plan of care. Lung sounds are positive for diffuse wheezes throughout the lung nowak. The findings and the impression was discussed with the patient. I attest to the documentation by the nurse practitioner. I have personally seen and examined the patient, performed the documentation and the assessment and plan as written. Number of minutes spent on the visit: [10] Time with Patient: Less than 30
--- NOTE | 2022-01-25 12:15 | P.PN ---
Subjective Progress Note Date: 01/25/22 HISTORY OF PRESENT ILLNESS: This is a 66-year-old male with a past medical history significant for coronary artery disease with previous stenting, hypertension, hyperlipidemia, diabetes, and nicotine dependence. 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 We have been asked to see the patient in consultation for abnormal troponins. Patient examined at the bedside. Patient presented to the hospital with a chief complaint of shortness of breath. The patient denied any chest pain or pressure. The patient underwent CTA revealing right lung mass. Pulmonary was consulted. The patient is a current smoker and smokes 2 PPD. He also reports a history of CAD and states he underwent stenting at [facility] in [place] about 10 years ago. He is unsure of what vessel was stented. * EKG reveals sinus mechanism with no signs of acute ischemia. Q waves inferiorly. * Chest xray bilateral patchy pulmonary infiltrates. No heart failure. * Chest CTA: Large stellate mass in the right upper lobe at the right pulmonary hilum consistent with primary malignancy. Extensive mediastinal and bronchial adenopathy. Multiple scattered low lobe pulmonary nodules could relate to metastatic disease. No evidence of pulmonary embolism * Laboratory data: WBC 11.0. Hemoglobin 14.0. Platelet count 233. D-dimer 1.29. Sodium 139. Potassium 3.6. BUN 16. Creatinine 0.76. Lactic acid 1.8. Troponin 0.057. 0.089. * Current home cardiac medications include amlodipine 10 mg at night, niacin 500 mg daily, losartan/hydrochlorothiazide 100-25mg daily, Plavix 75 mg daily, Coreg 12.5 mg twice a day, Lipitor 10 mg daily 01/25/2022 Patient examined this morning at the bedside. Patient denies chest pain or pressure. Pulmonary has evaluated the patient and is planning for bronchoscopy with biopsies next week. Echocardiogram completed revealing ejection fraction 45-50%, basal inferior and basal inferior septal LV wall hypokinesis, mid inferior LV wall hypokinesis, mild aortic regurgitation, [id number] MR, and mild TR. PHYSICAL EXAM: VITAL SIGNS: Reviewed. GENERAL: Well-developed in no acute distress. HEENT: Head is normocephalic. Pupils are equal, round. Sclerae anicteric. Mucous membranes of the mouth are moist. Neck supple. No JVD or thyromegaly LUNGS: Respirations even and unlabored. Lungs diminished HEART: Regular rate and rhythm. S1 and S2 heard. ABDOMEN: Soft. Nondistended. Nontender. EXTREMITIES: Normal range of motion. No clubbing or cyanosis. Peripheral pulses intact. No lower extremity edema NEUROLOGIC: Awake and alert. Oriented x 3. ASSESSMENT: Shortness of breath Right lung mass, suspected metastatic cancer Coronary artery disease with previous stenting, exact details unknown Abnormal troponins, not suggestive of ACS, may be secondary to hypoxia Hypertension Hyperlipidemia Diabetes History of TIA Abnormal LFTs PLAN: Continue current cardiac medications Patient may continue to hold Plavix from a cardiac standpoint No further inpatient recommendations from a cardiac standpoint. We will sign off. Please reconsult if needed. Nurse practitioner note has been reviewed by physician. Signing provider agrees with the documented findings, assessment, and plan of care. Objective - Vital Signs Vital signs: Vital Signs Temp 98.2 F 01/25/22 08:00 Pulse 68 01/25/22 09:02 Resp 16 01/25/22 08:00 BP 128/65 01/25/22 08:00 Pulse Ox 93 L 01/25/22 08:00 Intake & Output 01/24/22 01/25/22 01/25/22 18:59 06:59 18:59 Intake Total 120 Balance 120 Weight 99.79 kg Intake: Oral 120 Other: # Voids 1 1 - Labs CBC & Chem 7: 01/25/22 08:13 01/25/22 08:12 Labs: Abnormal Lab Results - Last 24 Hours (Table) 01/24/22 01/24/22 01/25/22 Range/Units 13:01 20:52 06:05 Glucose (74-99) mg/dL POC Glucose (mg/dL) 167 H 205 H (75-99) mg/dL Troponin I 0.071 H* (0.000-0.034) ng/mL 01/25/22 01/25/22 Range/Units 08:12 11:47 Glucose 213 H (74-99) mg/dL POC Glucose (mg/dL) 162 H (75-99) mg/dL Troponin I (0.000-0.034) ng/mL
[2022-01-25 12:25] VITALS: TEMP 98.3
[2022-01-25 12:34] VITALS: BP 164/76
[2022-01-25 12:38] VITALS: PULSE 68
[2022-01-25] MEDS: amLODIPine 10 MG TAB PO SCH (13:06)
--- NOTE | 2022-01-25 15:13 | CDI ---
Documentation Clarification Form Date: 01/25/2022 02:59:47 PM From: Brittany Membreno RN CCDS Admit Date: 01/24/2022 07:48:00 AM Patient Name: Kevin Baires Visit Number: [id number] Discharge Date: ATTENTION: The Clinical Documentation Specialists (CDI) and [facility] Coding Staff appreciate your assistance in clarifying documentation. Please respond to the clarification below the line at the bottom and electronically sign. The CDI & [facility] Coding staff will review the response and follow-up if needed. Please note: Queries are made part of the Legal Health Record. If you have any questions, please contact the author of this message via ITS. Dr. Alphonse Simmons Your patient has troponin level(s) of 0.057, 0.089, 0.71, 01/24. Please clarify if there is an additional diagnosis and/or clinical significance related to this value. Patient history/risk factors: 66-year-old male presents to the ED with shortness of breath. Medical history: Smoking, CAD, DM, HTN, VT and HLD. 01/24, H&P Clinical indicators: VSS 01/24 02:35: B/P 127/78; HR 87; Temp 98.1 F Oral; RR 16; SpO2 95% 6L nasal cannula 01/24 SpO2 96% room air EKG 01/24: 01/24, Cardiology consult: Sinus mechanism with no signs of acute ischemia. Q waves inferiorly. 01/24,Cardiology progress note: Echo completed revealing ejection fraction 45-50% basal inferior and basal inferior septal LV wall hypokinesis, mid inferior LV wall hypokinesis, mild aortic regurgitation. Mild to moderate MR, and mild TR. Treatment: 6L nasal cannula Is there an additional diagnosis and/or clinical significance related to the above lab result/information? [ ] Type 2 VT due to hypoxia [ ] Non-ischemic myocardial injury [ ] Troponemia, not clinically significant [ ] Other, please specify [ ] Unable to determine (Template Last Reviewed: September 2021) Non-ischemic myocardial injury MTDD
--- NOTE | 2022-01-25 15:16 | P.DS ---
Providers Date of admission: 01/24/22 07:48 Attending physician: Anshul Antunez Consults: 01/24/22 07:48 Consult Physician Routine Consulting Provider: Jimmy Kilgore Reason/Comments: Pulmonary mass Do you want consulting provider notified?: Yes Primary care physician: Physician Nonstaff Hospital Course: Final Diagnosis Right upper lobe mass consistent with primary pulmonary malignancy Mildly elevated troponins most likely secondary to hypoxemia, cardiology cleared the patient Coronary artery disease with previous stenting in the past Hypertension Hyperlipidemia Diabetes mellitus type 2 COPD with mild acute exacerbation Mild pulmonary hypertension Chronic tobacco dependence, 2 packs per day Obesity Discharge Disposition Patient cleared for discharge from pulmonary and cardiology as well as medical standpoint. He will follow-up in the pulmonary office early next week for navigational bronch, EBUS, and PET scan. Continue to hold plavix. Patient will need nebulizer on discharge. Hospital course This is a pleasant 58-year-old male who presents to the hospital with past medical history significant for coronary artery disease with previous stenting, hypertension, hyperlipidemia, diabetes mellitus type 2, chronic nicotine dependence smokes 2 packs per day. Patient presented to the hospital with a complaint of shortness of breath currently denies any chest pain or pressure there was no chest pain or pressure on admission. Patient had a CTA which revealed right lung mass consistent with primary malignancy with extensive mediastinal and bronchial adenopathy, multiple scattered lower lobe pulmonary nodules could relate to metastatic disease. No evidence for pulmonary embolism. Echocardiogram shows an EF of 45-50% with hypokinesis, [id number] mitral regurgitation, mild tricuspid regurgitation, mild pulmonary hypertension. Labs on admission show white count of 11, d-dimer 1.29, sodium 139, potassium 3.6, glucose 160s, AST 73, ALT 66, troponin elevation at 0.057, 0.089, 0.071. BNP 1590. Covid not detected. Home medications include metformin, amlodipine, Effexor, Zestoretic, carvedilol, atorvastatin, Xanax. Patient was treated in the hospital for a mild COPD exacerbation and nebulizers as well as IV steroids. We will give a steroid taper on discharge as well as nebulizer as needed for shortness of breath or wheezing. Patient will also begin a nicotine patch taper and was educated on the importance of smoking cessation. Patient will follow-up in the office with Dr. Persaud for pulmonary services as well as Dr. Simmons for cardiology and his PCP. 01/25/2022 Patient evaluated today sitting up at the bedside. He denies any chest pain, shortness of breath, cough. He denies any nausea vomiting diarrhea. Educated on the importance of smoking cessation, agreeable to nicotine patch taper. No acute events overnight. White count normalized 10.2, sodium 138, potassium 3.9, blood sugars 160s. We'll need to hold his metformin for another 24 hours. Kyle arevalo is afebrile, heart rate 60 sinus rhythm, blood pressure 164/76 he is 90% on room air. Lungs are clear, S1-S2 auscultated, focal neurological exam is negative. Please see medication reconciliation for a list of current medications. Thank you for allowing us to participate in the care of this patient. Patient Condition at Discharge: Fair Plan - Discharge Summary New Discharge Prescriptions: New Ipratropium-Albuterol Nebulize [Duoneb 0.5 mg-3 mg/3 ml Soln] 3 ml INHALATION RT-TID PRN #20 dose PRN Reason: Shortness Of Breath Or Wheezing Formoterol Fumarate [Perforomist] 20 mcg INHALATION RT-BID #60 dose Nicotine 21Mg/24Hr Patch [Habitrol] 1 each TRANSDERM DAILY #7 patch predniSONE 0 mg PO DIRECTED #10 tab Budesonide [Pulmicort Flexhaler] 2 puff INHALATION BID #1 each Continue Venlafaxine HCl ER [Effexor XR] 37.5 mg PO DAILY Niacin 500 mg PO DAILY Multivitamins, Thera [Multivitamin (formulary)] 1 tab PO DAILY Losartan/Hydrochlorothiazide [Losartan-Hctz 100-25 mg Tab] 1 tab PO DAILY ALPRAZolam [Xanax] 0.25 mg PO DAILY PRN PRN Reason: Anxiety amLODIPine [Norvasc] 10 mg PO HS Carvedilol [Coreg] 12.5 mg PO BID Atorvastatin [Lipitor] 10 mg PO DAILY metFORMIN HCL [Glucophage] 1,000 mg PO BID #0 Discontinued Clopidogrel [Plavix] 75 mg PO DAILY Discharge Medication List ALPRAZolam [Xanax] 0.25 mg PO DAILY PRN 01/24/22 [History] Atorvastatin [Lipitor] 10 mg PO DAILY 01/24/22 [History] Carvedilol [Coreg] 12.5 mg PO BID 01/24/22 [History] Losartan/Hydrochlorothiazide [Losartan-Hctz 100-25 mg Tab] 1 tab PO DAILY 01/24/22 [History] Multivitamins, Thera [Multivitamin (formulary)] 1 tab PO DAILY 01/24/22 [History] Niacin 500 mg PO DAILY 01/24/22 [History] Venlafaxine HCl ER [Effexor XR] 37.5 mg PO DAILY 01/24/22 [History] amLODIPine [Norvasc] 10 mg PO HS 01/24/22 [History] Budesonide [Pulmicort Flexhaler] 2 puff INHALATION BID #1 each 01/25/22 [Rx] Formoterol Fumarate [Perforomist] 20 mcg INHALATION RT-BID #60 dose 01/25/22 [Rx] Ipratropium-Albuterol Nebulize [Duoneb 0.5 mg-3 mg/3 ml Soln] 3 ml INHALATION RT-TID PRN #20 dose 01/25/22 [Rx] Nicotine 21Mg/24Hr Patch [Habitrol] 1 each TRANSDERM DAILY #7 patch 01/25/22 [Rx] metFORMIN HCL [Glucophage] 1,000 mg PO BID #0 01/25/22 [Rx] predniSONE 0 mg PO DIRECTED #10 tab 01/25/22 [Rx] Follow up Appointment(s)/Referral(s): Owen Apodaca MD [Other] - 1-2 Days (No answer. Please call to make follow up. ) Jimmy Kilgore MD [STAFF PHYSICIAN] - 02/01/22 9:00 am () Alphonse Simmons MD [STAFF PHYSICIAN] - 3 Weeks (patient lives in [place]. He does not want to drive all the way back here for an appoinment. Patient stated he will speak with his primary care doctor and be sure to make an appointment with a daylight driller closer to home. ) Patient Instructions/Handouts: How to Stop Smoking (DC) Activity/Diet/Wound Care/Special Instructions: Patient needs nebulizer on discharge r/t COPD. Patient on Duoneb TID. Discharge Disposition: HOME SELF-CARE
[2022-01-25 16:08] LABS: Chol/HDL Ratio 2.97 Ratio; LDL Cholesterol,Calculated 68.9 mg/dL (0.0-131.0)
== END 2022-01-25 15:21 | disposition home or self-care (01) | DRG 181 ==
LOC: EC 02:32 → 3SCARD 07:48
PROVIDERS: ADMIT Hospitalist; ATTEND Hospitalist
DX: C34.11 Malignant neoplasm of upper lobe, right bronchus or lung (principal); J44.1 Chronic obstructive pulmonary disease with (acute) exacerbation; C77.1 Secondary and unspecified malignant neoplasm of intrathoracic lymph nodes; I5A Non-ischemic myocardial injury (non-traumatic); I27.20 Pulmonary hypertension, unspecified; E11.9 Type 2 diabetes mellitus without complications; E78.5 Hyperlipidemia, unspecified; Z20.822 Contact with and (suspected) exposure to COVID-19; I10 Essential (primary) hypertension; I49.3 Ventricular premature depolarization; I25.10 Atherosclerotic heart disease of native coronary artery without angina pectoris; I08.3 Combined rheumatic disorders of mitral, aortic and tricuspid valves; R09.02 Hypoxemia; I25.2 Old myocardial infarction; R79.89 Other specified abnormal findings of blood chemistry; E66.9 Obesity, unspecified; Z68.32 Body mass index [BMI] 32.0-32.9, adult; F17.210 Nicotine dependence, cigarettes, uncomplicated; Z71.6 Tobacco abuse counseling; Z79.02 Long term (current) use of antithrombotics/antiplatelets; Z79.84 Long term (current) use of oral hypoglycemic drugs; Z79.899 Other long term (current) drug therapy; Z95.5 Presence of coronary angioplasty implant and graft; Z87.19 Personal history of other diseases of the digestive system; Z90.49 Acquired absence of other specified parts of digestive tract; Z86.73 Personal history of transient ischemic attack (TIA), and cerebral infarction without residual deficits; Z98.890 Other specified postprocedural states; Z80.8 Family history of malignant neoplasm of other organs or systems
CPT/HCPCS: 36415; 71046; 71275; 80048; 80053; 80061; 83605; 83880; 84484; 85025; 85027; 85379; 85610; 85730; 87635; 93005; 93306; 94640; 99285